=== PATIENT | male | born 1950 | race Two or more races ===

== ENCOUNTER 2024-09-13 14:04 | Inpatient (IN) | payer OTHER, MEDICAID ==
[~2024-09-13] VITALS: Ht 175.3 cm; Wt 107.1 kg
--- NOTE | 2024-09-13 14:39 | ED.PDOC ---
History of Present Illness HPI Comments This is a 74 year old male presenting to the ED with chief complaint of abnormal labs. Patient reports that he is coming from his PCP office after he was advised to due to TSH labs showing a level of 62.9. Patient denies any chest pain, SOB, dizziness, N/V, fever, or chills. Chief Complaint: Abnormal LAB's Time Seen by MD: 14:37 Reviewed Notes: Nurses Notes, Medications, Allergies Allergies: Coded Allergies: NO KNOWN ALLERGIES (Unverified , 09/13/24) Information Source: Patient Mode of Arrival: Ambulatory Severity: Mild Timing: Hours Duration: Since onset Prehospital treatment: None Past Medical History PAST MEDICAL HISTORY: CKF, DM, HTN, Thyroid Past Medical History (Other): Cataracts Surgical History: Denies all surgeries Family History Family History: Reviewed,noncontributory to illness Social History Smoker: Non-Smoker Alcohol: Denies ETOH Use Drugs: Denies Drug Use Lives In: Home Constitutional: denies: chills, diaphoresis, fatigue, fever, malaise, sweats, weakness, others EENTM: denies: blurred vision, double vision, ear bleeding, ear discharge, ear drainage, ear pain, ear ringing, eye pain, eye redness, hearing loss, mouth pain, mouth swelling, nasal discharge, nose bleeding, nose congestion, nose pain, photophobia, tearing, throat pain, throat swelling, voice changes, others Respiratory: denies: cough, hemoptysis, orthopnea, SOB at rest, shortness of breath, SOB with excertion, stridor, wheezing, others Cardiovascular: denies: chest pain, dizzy spells, diaphoresis, Dyspnea on exertion, edema, irregular heart beat, left arm pain, lightheadedness, palpitations, PND, syncope, others Gastrointestinal: denies: abdomen distended, abdominal pain, blood streaked bowels, constipated, diarrhea, dysphagia, difficulty swallowing, hematemesis, melena, nausea, poor appetite, poor fluid intake, rectal bleeding, rectal pain, vomiting, others Genitourinary: denies: burning, dysuria, flank pain, frequency, hematuria, incontinence, penile discharge, penile sore, pain, testicle pain, testicle swelling, urgency, others Neurological: denies: dizziness, fainting, headache, left sided numbness, left sided weakness, numbness, paresthesia, pre-existing deficit, right sided numbness, right sided weakness, seizure, speech problems, tingling, tremors, wea kness, others Musculoskeletal: denies: back pain, gout, joint pain, joint swelling, muscle pain, muscle stiffness, neck pain, others Integumetry: denies: bruises, change in color, change in hair/nails, dryness, l aceration, lesions, lumps, rash, wounds, others Allergic/Immunocompromised: denies: Difficulty Healing, Frequent Infections, Hives, Itching, others Hematologic/Lymphatic: denies: anemia, blood clots, easy bleeding, easy bruising, swollen glands, others Endocrine: denies: excessive hunger, excessive sweating, excessive thirst, excessive urination, flushing, intolerance to cold, intolerance to heat, unexplained weight gain, unexplained weight loss, others Psychiatric: denies: anxiety, bipolar disorder, depression, hopeless, panic disorder, schizophrenia, sleepless, suicidal, others All Other Systems: Reviewed and Negative Physical Exam General Appearance: Moderate Distress, Normal HEENT: Normal ENT Inspection, Pharynx Normal, TMs Normal Neck: Full Range of Motion, Non-Tender, Normal, Normal Inspection Respiratory: Chest Non-Tender, Lungs Clear, No Accessory Muscle Use, No Respiratory Distress, Normal Breath Sounds Cardiovascular: No Edema, No JVD, No Murmur, No Gallop, Normal Peripheral Pulses, Regular Rate/Rhythm Breast Exam: Deferred Gastrointestinal: No Organomegaly, Non Tender, No Pulsatile Mass, Normal Bowel Sounds, Soft Genitalia: Deferred Pelvic: Deferred Rectal: Deferred Extremities: No calf tenderness, Normal capillary refill, Normal inspection, Normal range of motion, Non-tender, No pedal edema Musculoskeletal : Apperance: Normal Neurologic: Alert, director pediatric II-XII nml as Tested, No Motor Deficits, Normal Affect, Normal Mood, No Sensory Deficits Cerebellar Function: Normal Reflexes: Normal Skin: Dry, Normal Color, Warm Peripheral Pulses: 3+ Radial (R), 3+ Radial (L) Lymphatic: No Adenopathy Was a procedure done? Was a procedure done?: No Differential Dx Considerations may include: Hypertension Electrolyte imbalance X-Ray, Labs, Meds, VS Vital Signs Date Time Temp Pulse Resp B/P (MAP) Pulse Ox O2 Delivery O2 Flow Rate FiO2 09/13/24 15:58 97.9 64 15 123/85 (98) 95 97.9 09/13/24 14:36 64 09/13/24 14:22 97.8 73 18 156/88 (110) 96 97.8 Lab Test 09/13/24 15:01 09/13/24 14:31 Range/Units White Blood Count 9.6 4.4-10.8 10^3/uL Red Blood Count 4.80 4.5-5.90 10^6/uL Hemoglobin 16.6 13.5-17.5 g/dL Hematocrit 47.9 41.0-53.0 % Mean Corpuscular Volume 99.6 80.0-100.0 fL Mean Corpuscular Hemoglobin 34.6 H 28.0-32.0 pg Mean Corpuscular Hemoglobin Concent 34.8 32.0-36.0 g/dL Red Cell Distribution Width 14.4 H 11.8-14.3 % Platelet Count 232 140-450 10^3/uL Mean Platelet Volume 8.4 6.9-10.8 fL Neutrophils (%) (Auto) 56.5 37.0-80.0 % Lymphocytes (%) (Auto) 31.8 10.0-50.0 % Monocytes (%) (Auto) 6.7 0.0-12.0 % Eosinophils (%) (Auto) 4.1 0.0-7.0 % Basophils (%) (Auto) 0.9 0.0-2.0 % Neutrophils # (Auto) 5.4 1.6-8.6 10 ^3/uL Lymphocytes # (Auto) 3.0 0.4-5.4 10 ^3/uL Monocytes # (Auto) 0.6 0-1.3 10 ^3/uL Eosinophils # (Auto) 0.4 0-0.8 10 ^3/uL Basophils # (Auto) 0.1 0-0.2 10 ^3/uL Nucleated Red Blood Cells 0.2 % Urine Color Light-yellow Yellow Urine Clarity Clear Clear Urine pH 5.5 5.0-9.0 Urine Specific [place] 1.017 1.001-1.035 Urine Protein Negative Negative Urine Ketones Negative Negative Urine Blood Negative Negative /uL Urine Nitrite Negative Negative Urine Bilirubin Negative Negative Urine Urobilinogen Normal Negative mg/dL Urine Leukocyte Esterase Negative Negative /uL Urine RBC 1 0 - 3 /hpf Urine Microscopic WBC 1 0-3 /HPF Urine Squamous Epithelial Cells None seen <5 /hpf Urine Bacteria None seen None Seen /hpf Urine Mucus Few None Seen Urine Glucose Normal Normal mg/dL Sodium Level 137 136-145 mmol/L Potassium Level 3.8 3.5-5.1 mmol/L Chloride Level 100 98-107 mmol/L Carbon Dioxide Level 29 20-31 mmol/L Anion Gap 8 5-15 Blood Urea Nitrogen 14 9-23 mg/dL Creatinine 1.74 H 0.700-1.30 mg/dL Glomerular Filtration Rate Calc 41 >90 mL/min BUN/Creatinine Ratio 8.0 L 10.0-20.0 Serum Glucose 150 H 74-106 mg/dL Calcium Level 10.3 8.7-10.4 mg/dL Troponin I High Sensitivity 4 </=54 ng/L POC Glucose 155 H 70-106 mg/dl Patient alert. Referred from outside clinic. Blood pressure elevated. Answering questions. Saturation pristine on room air. Ambulating it has some difficulty. EKG reviewed does not show any acute changes. Explained to the patient. Continue monitoring. Time of 1ST Reevaluation: 15:36 Reevaluation 1ST: Unchanged Patient Education/Counseling: Diagnosis, Treatment Family Education/Counseling: No Family Present Additional Information Previous visits reviewed: None The following tests were ordered, and results were reviewed by me: Chest XR, CBC, BMP, UA, Troponin Additional Information was gathered from interviewing the following independent historians: None I reviewed and agreed with the following test results read by other providers: Chest XR I discussed treatment and results with medical personnel and: patient Comprehensive systems review obtained and negative except for what is stated in the HPI. SEPSIS Sepsis Screen Physician Orders Chest Portable (09/13/24 14:31) Electrocardigram (09/13/24 14:51) Vital Signs Date Time Temp Pulse Resp B/P (MAP) Pulse Ox O2 Delivery O2 Flow Rate FiO2 09/13/24 15:58 97.9 64 15 123/85 (98) 95 97.9 09/13/24 14:36 64 09/13/24 14:22 97.8 73 18 156/88 (110) 96 97.8 Laboratory Tests Test 09/13/24 15:01 White Blood Count 9.6 10^3/uL (4.4-10.8) Departure 1 Departure Time of Disposition: 14:45 Impression: Primary Impression: Uncontrolled diabetes mellitus Qualified Codes: E13.65 - Other specified diabetes mellitus with hyperglycemia Additional Impression: Hypertension Qualified Codes: I10 - Essential (primary) hypertension Disposition: ADMITTED INPATIENT Admit to: Med Surg Condition: Guarded Critical Care Note Critical Care Time?: No Stability Stability form required: No Heart Score Heart Score: Heart Score Response (Comments) Value History Slightly Suspicious 0 EKG Normal 0 Age >65 2 Risk Factors >3 or Hx ASHD 2 Troponin Normal limit 0 Total 4 I personally scribed for CHANTELLE ABDALLA MD ([email or web address]) on 09/13/24 at 14:39. Electronically submitted by John Antoine ([email or web address]). CHANTELLE ABDALLA MD Sep 13, 2024 14:39
--- NOTE | 2024-09-13 15:18 | DVH ---
CHEST RADIOGRAPH Indication: sob Technique: Single frontal view of the chest was obtained Comparison: None FINDINGS: Lines and Tubes: None Lungs: No focal consolidation. Pleura: No effusion. No pneumothorax. Cardiomediastinal contours: Unremarkable Bones: No acute osseous abnormality. IMPRESSION: 1. No acute cardiopulmonary disease.
[2024-09-13 15:39] LABS: Urine Protein, UAD Negative (Negative)
[2024-09-13 15:43] LABS: Hematocrit 47.9 % (41.0-53.0); Hemoglobin 16.6 g/dL (13.5-17.5); Mean Corpuscular Hemoglobin 34.6 pg (28.0-32.0); Mean Corpuscular Volume 99.6 fL (80.0-100.0); Nucleated Red Blood Cells % 0.2 %
[2024-09-13 15:46] LABS: Chloride 100 mmol/L (98-107); Potassium 3.8 mmol/L (3.5-5.1); Sodium 137 mmol/L (136-145)
[2024-09-13 15:47] LABS: Anion Gap 8 (5-15); Calcium 10.3 mg/dL (8.7-10.4); Carbon Dioxide 29 mmol/L (20-31)
[2024-09-13 15:52] LABS: BUN/Creatinine Ratio 8.0 (10.0-20.0); Blood Urea Nitrogen 14 mg/dL (9-23); Glucose 150 mg/dL (74-106)
[2024-09-13 15:58] VITALS: PULSE 65; RESP 14; O2SAT 94
[2024-09-13] MEDS ORDERED: ACETAMINOPHEN 325 MG TAB PO PRN (19:15)
[2024-09-13] MEDS ORDERED: ONDANSETRON HCL 4 MG/2 ML VIAL IV PRN (19:15)
--- NOTE | 2024-09-13 19:22 | DVHHP2 ---
History of Present Illness Reason for Visit: Abnormal lab results History of Present Illness 74-year-old male presents for evaluation of abnormal lab results. The patient was sent by his primary care provider for evaluation of elevated TSH level. Patient reports he is not taking levothyroxine as prescribed. He states sometim es he confuses it with aspirin. He denies dizziness, palpitations, chest pain, shortness for breath. He does report occasional fatigue. No other acute complaints reported. Past Medical History Dyslipidemia, diabetes mellitus, hypertension, thyroid Past Surgical History Cataract surgery Family History Noncontributory Smoke: No ALCOHOL: none Drugs: None Lives: with Family Review of Systems Review of Systems Review of systems are currently negative otherwise addressed in HPI. Allergies: Coded Allergies: NO KNOWN ALLERGIES (Unverified , 09/13/24) Exam Vital Signs Vital Signs Date Time Temp Pulse Resp B/P (MAP) Pulse Ox O2 Delivery O2 Flow Rate FiO2 09/13/24 18:42 66 16 124/82 (96) 94 09/13/24 15:58 Room Air* 0 21 09/13/24 15:58 97.9 97.9 Exam Gen: 74-year-old male in mild distress Skin: Warm, dry, normal color and texture, no rash. HEENT: Normocephalic atraumatic, mucous membranes moist and pink. Neck: Cervical and supraclavicular nodes normal without enlargement, trachea is midline, thyroid gland is normal without masses. Pulmonary: Clear to auscultation and percussion bilaterally. Cardiac: Regular rate and rhythm. No murmur Abdomen: Soft, nontender, nondistended, bowel sounds present all 4 quadrants, no guarding, no rigidity, no organomegaly. Extremities: No cyanosis, clubbing, no edema Neuro: Cranial nerves II through XII grossly intact, normal affect and speech, no focal motor deficits. Labs/Xrays ORDERING PHYSICIAN: CHANTELLE ABDALLA MD PROCEDURE(s): CXRP - CHEST PORTABLE REASON: sob ORDER NUMBER(s): [id number], ACCESSION NUMBER(s): [id number] CHEST RADIOGRAPH Indication: sob Technique: Single frontal view of the chest was obtained Comparison: None FINDINGS: Lines and Tubes: None Lungs: No focal consolidation. Pleura: No effusion. No pneumothorax. Cardiomediastinal contours: Unremarkable Bones: No acute osseous abnormality. IMPRESSION: 1. No acute cardiopulmonary disease. Labs Test 09/13/24 15:01 09/13/24 14:31 Range/Units White Blood Count 9.6 4.4-10.8 10^3/uL Red Blood Count 4.80 4.5-5.90 10^6/uL Hemoglobin 16.6 13.5-17.5 g/dL Hematocrit 47.9 41.0-53.0 % Mean Corpuscular Volume 99.6 80.0-100.0 fL Mean Corpuscular Hemoglobin 34.6 H 28.0-32.0 pg Mean Corpuscular Hemoglobin Concent 34.8 32.0-36.0 g/dL Red Cell Distribution Width 14.4 H 11.8-14.3 % Platelet Count 232 140-450 10^3/uL Mean Platelet Volume 8.4 6.9-10.8 fL Neutrophils (%) (Auto) 56.5 37.0-80.0 % Lymphocytes (%) (Auto) 31.8 10.0-50.0 % Monocytes (%) (Auto) 6.7 0.0-12.0 % Eosinophils (%) (Auto) 4.1 0.0-7.0 % Basophils (%) (Auto) 0.9 0.0-2.0 % Neutrophils # (Auto) 5.4 1.6-8.6 10 ^3/uL Lymphocytes # (Auto) 3.0 0.4-5.4 10 ^3/uL Monocytes # (Auto) 0.6 0-1.3 10 ^3/uL Eosinophils # (Auto) 0.4 0-0.8 10 ^3/uL Basophils # (Auto) 0.1 0-0.2 10 ^3/uL Nucleated Red Blood Cells 0.2 % Urine Color Light-yellow Yellow Urine Clarity Clear Clear Urine pH 5.5 5.0-9.0 Urine Specific [place] 1.017 1.001-1.035 Urine Protein Negative Negative Urine Ketones Negative Negative Urine Blood Negative Negative /uL Urine Nitrite Negative Negative Urine Bilirubin Negative Negative Urine Urobilinogen Normal Negative mg/dL Urine Leukocyte Esterase Negative Negative /uL Urine RBC 1 0 - 3 /hpf Urine Microscopic WBC 1 0-3 /HPF Urine Squamous Epithelial Cells None seen <5 /hpf Urine Bacteria None seen None Seen /hpf Urine Mucus Few None Seen Urine Glucose Normal Normal mg/dL Sodium Level 137 136-145 mmol/L Potassium Level 3.8 3.5-5.1 mmol/L Chloride Level 100 98-107 mmol/L Carbon Dioxide Level 29 20-31 mmol/L Anion Gap 8 5-15 Blood Urea Nitrogen 14 9-23 mg/dL Creatinine 1.74 H 0.700-1.30 mg/dL Glomerular Filtration Rate Calc 41 >90 mL/min BUN/Creatinine Ratio 8.0 L 10.0-20.0 Serum Glucose 150 H 74-106 mg/dL Calcium Level 10.3 8.7-10.4 mg/dL Troponin I High Sensitivity 4 </=54 ng/L Thyroid Stimulating Hormone (TSH) 59.69 H 0.55-4.78 uIU/mL POC Glucose 155 H 70-106 mg/dl SEPSIS Sepsis Screen Date sepsis recognized/suspect: Sep 13, 2024 Time Sepsis recognized/suspect: 1603 Recent Procedure: No (T) On Antibiotic Therapy: No Respiratory Rate >20: No Heart Rate >90: No Temp<36 C (96.8 F) or >38.3 C: No SBP <90 or MAP <65 mmHG: No New Acute Mental Status Change: No Is the patient on CPAP, BIPAP,: No Physician Orders Chest Portable (09/13/24 14:31) Electrocardigram (09/13/24 14:51) Thyroid Panel (09/13/24 19:13) Levothyroxine Tablet (Synthroid Tablet) (09/13/24 19:15) Levothyroxine Tablet (Synthroid Tablet) (09/14/24 06:00) Lisinopril Tablet (Zestril Tablet) (09/14/24 10:00) Aspirin Tablet (09/14/24 10:00) Metformin Hydrochloride (Glucophage) (09/14/24 08:00) Consistent Carb(Ccho)Diabetes (09/14/24 Breakfast) Basic Metabolic Panel (09/14/24 04:00) Admit (09/13/24 19:13) Ondansetron Hcl (Zofran) (09/13/24 19:15) Condition: Stable (09/13/24 19:13) Acetaminophen Tablet (Tylenol Tablet) (09/13/24 19:15) Bedrest With Bathroom Privileg (09/13/24 19:13) Accucheck (09/13/24 19:13) Vital Signs Date Time Temp Pulse Resp B/P (MAP) Pulse Ox O2 Delivery O2 Flow Rate FiO2 09/13/24 18:42 66 16 124/82 (96) 94 09/13/24 17:15 64 12 126/81 (96) 93 09/13/24 15:58 65 14 94 Room Air* 0 21 09/13/24 15:58 97.9 64 15 123/85 (98) 95 97.9 09/13/24 14:36 64 09/13/24 14:22 97.8 73 18 156/88 (110) 96 97.8 Laboratory Tests Test 09/13/24 15:01 White Blood Count 9.6 10^3/uL (4.4-10.8) Assessment/Plan Assessment/Plan Assessment Hypothyroid Diabetes mellitus Hypertension Chronic kidney disease Plan Admit the patient to Med surge to the hospitalist Increase levothyroxine Thyroid panel pending Resume rest of medications Continue treatment per orders. Plan discussed with: Patient My Orders Orders - LORRAINE DIEHL Procedure Category Date Status Time Thyroid Panel LAB 09/13/24 Verified 19:13 Levothyroxine Tablet PHA 09/13/24 Verified (Synthroid Tablet) 19:15 Levothyroxine Tablet PHA 09/14/24 Verified (Synthroid Tablet) 06:00 Lisinopril Tablet PHA 09/14/24 Verified (Zestril Tablet) 10:00 Aspirin Tablet PHA 09/14/24 Verified 10:00 Metformin PHA 09/14/24 Verified Hydrochloride 08:00 Consistent DIET 09/14/24 Verified Carb(Ccho)Diabetes Breakfast Basic Metabolic Panel LAB 09/14/24 Verified 04:00 Admit ADMIT 09/13/24 Verified 19:13 Ondansetron Hcl PHA 09/13/24 Verified (Zofran) 19:15 Condition: Stable KESHAV 09/13/24 Verified 19:13 Acetaminophen Tablet PHA 09/13/24 Verified (Tylenol Tablet) 19:15 Bedrest With Bathroom KESHAV 09/13/24 Verified Privileg 19:13 Accucheck BD 09/13/24 Verified 19:13 Date of Service: Sep 13, 2024 Billing Provider: LORRAINE DIEHL Common Visit Codes: [id number] INP/OBS CARE (MOD) LORRAINE DIEHL Sep 13, 2024 19:22
[2024-09-13] MEDS: LEVOTHYROXINE SODIUM 112 MCG TAB PO ONE (19:58)
[2024-09-13 22:39] VITALS: BP 130/77; PULSE 67; RESP 17; TEMP 98.2; O2SAT 94
[2024-09-13] MEDS ORDERED: LEVO112T4 PO (23:01)
[2024-09-13] MEDS ORDERED: LISI10TA34 PO (23:01)
[2024-09-13] MEDS ORDERED: GLIP10TA9 PO (23:01)
[2024-09-13] MEDS ORDERED: METF-372 PO (23:02)
[2024-09-13] MEDS ORDERED: SITA100T7 PO (23:02)
[2024-09-13] MEDS ORDERED: ASPI-325 PO (23:02)
[2024-09-14] VITALS (7 sets, daily range): BP systolic 106–134; BP diastolic 68–81; PULSE 62–69; RESP 17–21; TEMP 97.2–98.7; O2SAT 93–96
[2024-09-14] MEDS: LEVOTHYROXINE SODIUM 112 MCG TAB PO SCH (05:55)
[2024-09-14 06:40] LABS: Chloride 103 mmol/L (98-107); Potassium 3.8 mmol/L (3.5-5.1); Sodium 138 mmol/L (136-145)
[2024-09-14 06:42] LABS: Anion Gap 10 (5-15); Calcium 8.8 mg/dL (8.7-10.4); Carbon Dioxide 25 mmol/L (20-31)
[2024-09-14 06:47] LABS: BUN/Creatinine Ratio 9.3 (10.0-20.0); Blood Urea Nitrogen 15 mg/dL (9-23)
[2024-09-14 06:48] LABS: Glucose 155 mg/dL (74-106)
[2024-09-14] MEDS: LISINOPRIL 5 MG TAB PO SCH (08:15)
[2024-09-14 10:30] LABS: Hepatitis B Surface Antigen Negative (Negative); Hepatitis C Antibody Negative (Negative)
--- NOTE | 2024-09-14 12:14 | DVHPN2 ---
Subjective The patient seen and examined at bedside. Complains of shortness of breath. Reviewed: Care Plan, H&P, Labs, Medications, Previous Orders, Radiology Changes from previous H/P or p: No Changes Objective Vitals Vital Signs Date Time Temp Pulse Resp B/P (MAP) Pulse Ox O2 Delivery O2 Flow Rate FiO2 09/14/24 09:00 97.6 62 20 134/81 (98) 93 97.6 09/13/24 22:39 Room Air* 0 21 Intake/Output Intake and Output 09/14/24 07:00 Intake Total 250 ml Balance 250 ml Intake Oral 250 ml # Voids 3 General Appearance: Alert, Oriented X3, Cooperative, No acute distress HEENT: Atraumatic, PERRLA, EOMI, Mucous membr. moist/pink Neck: Supple Lungs: Clear to auscultation, Normal air movement Cardiovascular: Regular rate, Normal S1, Normal S2, No murmurs, Gallops, Rubs Abdomen: Normal bowel sounds, Soft, No tenderness Neuro: Cranial nerves 3-12 NL Psych/Mental Status: Mental status NL Medications Current Medications Medications Dose Ordered Sig/Elías Route Start Time Stop Time Status Last Admin Dose Admin Levothyroxine Sodium 112 mcg QAM@0600 PO 09/14/24 06:00 09/14/24 05:55 112 MCG Lisinopril 10 mg DAILY PO 09/14/24 10:00 09/14/24 08:15 10 MG Aspirin 81 mg DAILY PO 09/14/24 10:00 09/14/24 08:15 81 MG Metformin HCl 1,000 mg BIDWM PO 09/14/24 08:00 09/14/24 08:16 1,000 MG Ondansetron HCl 4 mg Q4HP PRN IV 09/13/24 19:15 Acetaminophen 650 mg Q6HP PRN PO 09/13/24 19:15 Laboratory Results Laboratory Tests 09/13/24 15:01 09/14/24 05:36 Chemistry Test 09/13/24 15:01 09/14/24 05:36 Calcium Level 10.3 mg/dL (8.7-10.4) 8.8 mg/dL (8.7-10.4) HgA1c, TSH Test 09/13/24 15:01 Thyroid Stimulating Hormone (TSH) 59.69 uIU/mL (0.55-4.78) H Urinalysis Test 09/13/24 15:01 Urine Color Light-yellow (Yellow) Urine Clarity Clear (Clear) Urine pH 5.5 (5.0-9.0) Urine Specific [place] 1.017 (1.001-1.035) Urine Protein Negative (Negative) Urine Ketones Negative (Negative) Urine Blood Negative /uL (Negative) Urine Nitrite Negative (Negative) Urine Bilirubin Negative (Negative) Urine Urobilinogen Normal mg/dL (Negative) Urine Leukocyte Esterase Negative /uL (Negative) Urine RBC 1 /hpf (0 - 3) Urine Microscopic WBC 1 /HPF (0-3) Urine Squamous Epithelial Cells None seen /hpf (<5) Urine Bacteria None seen /hpf (None Seen) Urine Mucus Few (None Seen) Urine Glucose Normal mg/dL (Normal) Labs and/or images reviewed: Labs reviewed by me Assessment/Plan Assessment/Plan Hypothyroidism Diabetes mellitus type 2 Hypertension Chronic kidney disease Continue current management. Continue SSI Continue HTN medication Will monitor kidney function. Plan discussed with: Patient Date of Service: Sep 14, 2024 Billing Provider: JOSHUA BROWNLEE MD Common Visit Codes: [id number] INP/OBS CARE(HIGH) JOSHUA BROWNLEE MD Sep 14, 2024 12:14
[2024-09-15 05:00] VITALS: BP 102/69; PULSE 68; RESP 16; TEMP 97.8; O2SAT 91
[2024-09-15 05:08] LABS: Free Thyroxine Index 0.2 (1.2-4.9)
[2024-09-15 08:39] VITALS: BP 123/70; PULSE 70; RESP 16; TEMP 97.3; O2SAT 91
[2024-09-15 13:18] VITALS: BP 106/83; PULSE 80; RESP 16; TEMP 97.4; O2SAT 95
--- NOTE | 2024-09-15 15:37 | DVHPN2 ---
Subjective The patient seen and examined at bedside. Complains of shortness of breath. Reviewed: Care Plan, H&P, Labs, Medications, Previous Orders, Radiology Objective Vitals Vital Signs Date Time Temp Pulse Resp B/P (MAP) Pulse Ox O2 Delivery O2 Flow Rate FiO2 09/15/24 13:18 97.4 80 16 106/83 (91) 95 97.4 09/15/24 08:10 Room Air* 0 21 Intake/Output Intake and Output 09/15/24 07:00 Intake Total 2140 ml Balance 2140 ml Intake Oral 2140 ml # Voids 3 General Appearance: Alert, Oriented X3, Cooperative, No acute distress HEENT: Atraumatic, PERRLA, EOMI, Mucous membr. moist/pink Neck: Supple Lungs: Clear to auscultation, Normal air movement Cardiovascular: Regular rate, Normal S1, Normal S2, No murmurs, Gallops, Rubs Abdomen: Normal bowel sounds, Soft, No tenderness Neuro: Cranial nerves 3-12 NL Psych/Mental Status: Mental status NL Medications Current Medications Medications Dose Ordered Sig/Elías Route Start Time Stop Time Status Last Admin Dose Admin Levothyroxine Sodium 112 mcg QAM@0600 PO 09/14/24 06:00 09/15/24 05:51 112 MCG Lisinopril 10 mg DAILY PO 09/14/24 10:00 09/15/24 09:08 10 MG Aspirin 81 mg DAILY PO 09/14/24 10:00 09/15/24 09:09 81 MG Metformin HCl 1,000 mg BIDWM PO 09/14/24 08:00 09/15/24 09:08 1,000 MG Ondansetron HCl 4 mg Q4HP PRN IV 09/13/24 19:15 Acetaminophen 650 mg Q6HP PRN PO 09/13/24 19:15 Laboratory Results Laboratory Tests 09/13/24 15:01 09/14/24 05:36 Urinalysis Test 09/13/24 15:01 Urine Color Light-yellow (Yellow) Urine Clarity Clear (Clear) Urine pH 5.5 (5.0-9.0) Urine Specific [place] 1.017 (1.001-1.035) Urine Protein Negative (Negative) Urine Ketones Negative (Negative) Urine Blood Negative /uL (Negative) Urine Nitrite Negative (Negative) Urine Bilirubin Negative (Negative) Urine Urobilinogen Normal mg/dL (Negative) Urine Leukocyte Esterase Negative /uL (Negative) Urine RBC 1 /hpf (0 - 3) Urine Microscopic WBC 1 /HPF (0-3) Urine Squamous Epithelial Cells None seen /hpf (<5) Urine Bacteria None seen /hpf (None Seen) Urine Mucus Few (None Seen) Urine Glucose Normal mg/dL (Normal) Assessment/Plan Assessment/Plan Hypothyroidism Diabetes mellitus type 2 Hypertension Chronic kidney disease Continue current management. Continue SSI Continue HTN medication Will monitor kidney function. JOSHUA BROWNLEE MD Sep 15, 2024 15:36
--- NOTE | 2024-09-15 16:12 | DVHDS2 ---
Discharge Summary Date of Admission Sep 13, 2024 at 19:13 Date of Discharge: Sep 15, 2024 Admitting Diagnosis Hypothyroidism Diabetes mellitus type 2 Hypertension Chronic kidney disease Labs/Diagnostic Data: Laboratory Results Test 09/14/24 05:36 09/13/24 15:01 09/13/24 14:31 Sodium Level 138 mmol/L (136-145) Potassium Level 3.8 mmol/L (3.5-5.1) Chloride Level 103 mmol/L (98-107) Carbon Dioxide Level 25 mmol/L (20-31) Anion Gap 10 (5-15) Blood Urea Nitrogen 15 mg/dL (9-23) Creatinine 1.61 mg/dL (0.700-1.30) Glomerular Filtration Rate Calc 45 mL/min (>90) BUN/Creatinine Ratio 9.3 (10.0-20.0) Serum Glucose 155 mg/dL (74-106) Calcium Level 8.8 mg/dL (8.7-10.4) Free Thyroxine Index 0.2 (1.2-4.9) Thyroxine (T4) 1.0 ug/dL (4.5-12.0) Triiodothyronine (T3) Uptake 15 % (24-39) Hepatitis B Surface Antigen Negative (Negative) Hepatitis C Antibody Negative (Negative) White Blood Count 9.6 10^3/uL (4.4-10.8) Red Blood Count 4.80 10^6/uL (4.5-5.90) Hemoglobin 16.6 g/dL (13.5-17.5) Hematocrit 47.9 % (41.0-53.0) Mean Corpuscular Volume 99.6 fL (80.0-100.0) Mean Corpuscular Hemoglobin 34.6 pg (28.0-32.0) Mean Corpuscular Hemoglobin Concent 34.8 g/dL (32.0-36.0) Red Cell Distribution Width 14.4 % (11.8-14.3) Platelet Count 232 10^3/uL (140-450) Mean Platelet Volume 8.4 fL (6.9-10.8) Neutrophils (%) (Auto) 56.5 % (37.0-80.0) Lymphocytes (%) (Auto) 31.8 % (10.0-50.0) Monocytes (%) (Auto) 6.7 % (0.0-12.0) Eosinophils (%) (Auto) 4.1 % (0.0-7.0) Basophils (%) (Auto) 0.9 % (0.0-2.0) Neutrophils # (Auto) 5.4 10 ^3/uL (1.6-8.6) Lymphocytes # (Auto) 3.0 10 ^3/uL (0.4-5.4) Monocytes # (Auto) 0.6 10 ^3/uL (0-1.3) Eosinophils # (Auto) 0.4 10 ^3/uL (0-0.8) Basophils # (Auto) 0.1 10 ^3/uL (0-0.2) Nucleated Red Blood Cells 0.2 % Urine Color Light-yellow (Yellow) Urine Clarity Clear (Clear) Urine pH 5.5 (5.0-9.0) Urine Specific [place] 1.017 (1.001-1.035) Urine Protein Negative (Negative) Urine Ketones Negative (Negative) Urine Blood Negative /uL (Negative) Urine Nitrite Negative (Negative) Urine Bilirubin Negative (Negative) Urine Urobilinogen Normal mg/dL (Negative) Urine Leukocyte Esterase Negative /uL (Negative) Urine RBC 1 /hpf (0 - 3) Urine Microscopic WBC 1 /HPF (0-3) Urine Squamous Epithelial Cells None seen /hpf (<5) Urine Bacteria None seen /hpf (None Seen) Urine Mucus Few (None Seen) Urine Glucose Normal mg/dL (Normal) Troponin I High Sensitivity 4 ng/L (</=54) Thyroid Stimulating Hormone (TSH) 59.69 uIU/mL (0.55-4.78) POC Glucose 155 mg/dl (70-106) Other Laboratory Tests 09/14/24 05:36 09/13/24 15:01 Brief Hx & Hospital Course: 74-year-old male presents for evaluation of abnormal lab results. The patient was sent by his primary care provider for evaluation of elevated TSH level. Patient reports he is not taking levothyroxine as prescribed. He states sometimes he confuses it with aspirin. He denies dizziness, palpitations, chest pain, shortness for breath. He does report occasional fatigue. No other acute complaints reported. His Thyroid panel show TSH 59.69, FT4 0.2, T4 1.0, T3 15. The patient was started on Synthroid 137mcg PO daily. DW in length with patient to be compliance with his medication. Follow up with primary care physician 1-2 weeks. The patient need thyroid function tests in three months. Physical exam HEENT: Normocephalic atraumatic pupils equal react to light and accommodation. Extraocular muscles intact, conjunctiva pink, oropharynx moist, no thrush, no exudate. Lymphatic: No lymphadenopathy Cardiovascular exam: S1, S2 was heard. No murmurs, rubs, gallops Lung: Clear on auscultation bilaterally, no wheeze, rale, rhonchi. GI: Abdominal soft, nondistended, nontenderness, positive bowel sounds. Extremity: No crepitus, cyanosis, edema. Pedal pulses present bilateral. Full range of motion. Skin: Normal turgor, no rash. Psych: Alert, oriented x3. Neurology: No focal deficits, cranial nerve II to XII grossly intact. This medical document was created using an electronic medical record system with [employer] direct computerized dictation system. Although this document has been carefully reviewed, there may still be some phonetic and typographical errors. These areas are purely typographical due to imperfections of the software programs, and do not reflect any compromise in the patient's medical care. Condition at Discharge: Stable Final Diagnosis/Problems List Hypothyroidism Diabetes mellitus type 2 Hypertension Chronic kidney disease Discharge Disposition: Home Discharge Instruct/Medications Scheduled Aspirin (Aspirin Low Dose), 1 TAB PO DAILY, (Reported) Glipizide (Glipizide), 1 TAB PO BID, (Reported) Levothyroxine Sodium (Levothyroxine Sodium), 1 TAB PO DAILY Lisinopril (Lisinopril), 1 TAB PO DAILY, (Reported) Metformin Hydrochloride (Metformin Hcl), 1 TAB PO BID, (Reported) Sitagliptin Phosphate (Januvia), 1 TAB PO DAILY, (Reported) Discontinued Medications Levothyroxine Sodium (Levothyroxine Sodium), 1 TAB PO DAILY, (Reported) Discharge Statement: "Patient was advised to return to the ER or call 911 if any headaches, dizziness, shortness of breath, chest pain, abdominal pain, bleeding, fevers, or worsening of medical condition. Patient was counseled about treatment plan, medications, possible side effects, patientverbalized understanding. All questions were answered to the best of my ability. This discharge took greater then 30 minutes in planning, reviewing documentation, counseling the patient, and discussing with other team members." ASSESSMENT ASSESSMENT Assessment Date of Service: Sep 15, 2024 Billing Provider: JOSHUA BROWNLEE MD Common Visit Codes: 58724-VTU/OBS DISCH DAY >30min JOSHUA BROWNLEE MD Sep 15, 2024 16:12
[2024-09-15] MEDS ORDERED: LEVO137T3 PO (16:13)
[2024-09-15 16:50] VITALS: BP 138/82; PULSE 92; RESP 16; TEMP 98; O2SAT 95
[2024-09-15 17:26] VITALS: BP 123/70; TEMP 36.7
[2024-09-16] MEDS ORDERED: LEVOTHYROXINE SODIUM 112 MCG TAB PO SCH (06:00)
[2024-09-16] MEDS ORDERED: LEVOTHYROXINE SODIUM 25 MCG TAB PO SCH ×2 (06:00)
--- NOTE | 2024-09-17 13:43 | ECG ---
[facility] Test Date: 2024-09-13 Test Time: 14:36:57 Pat Name: HOLA MARINELLI Department: ER Room: 0219 A Gender: M Homeopathic Doctor: ER : [id number] Requested By: CHANTELLE ABDALLA Order Number: [id number] Reading MD: Georges Garsia Measurements Intervals [place] Rate: 64 P: 51 NV: 195 QRS: -41 QRSD: 106 T: 51 QT: 456 QTc: 471 Interpretive Statements Sinus rhythm Left anterior fascicular block Low voltage, precordial leads Abnormal R-wave progression, late transition Borderline T abnormalities, lateral leads Electronically Signed On 09-19-2024 17:42:19 PDT by Georges Garsia Please click the below link to view image of tracing.
== END 2024-09-15 17:52 | disposition home or self-care (01) | DRG 645 ==
LOC: ER 14:04 → OVERFLOW 19:13 → CENTRAL 19:18
PROVIDERS: ADMIT Internal Medicine; ATTEND Internal Medicine
DX: E03.9 Hypothyroidism, unspecified (principal); I12.9 Hypertensive chronic kidney disease with stage 1 through stage 4 chronic kidney disease, or unspecified chronic kidney disease; E11.22 Type 2 diabetes mellitus with diabetic chronic kidney disease; E78.5 Hyperlipidemia, unspecified; N18.9 Chronic kidney disease, unspecified; Z79.899 Other long term (current) drug therapy
CPT/HCPCS: 36415; 71045; 80048; 81001; 82962; 84443; 84484; 85025; 86803; 87340; 93005; G0378